=== PATIENT | male | born 1970 | race Caucasian/White ===

== ENCOUNTER 2017-07-03 01:49 | Observation (INO) | payer BC ==
[~2017-07-03] VITALS: Ht 170.2 cm; Wt 81.2 kg
[2017-07-03] VITALS (10 sets, daily range): BP systolic 132–154; BP diastolic 83–97; PULSE 61–90; RESP 17–19; Ht 170.2 cm; Wt 81.2 kg
[2017-07-03] MEDS ORDERED: HYDROCODONE/APAP (5/325) TAB PO PRN (06:30)
[2017-07-03] MEDS ORDERED: ACETAMINOPHEN 325 MG TAB PO PRN (06:30)
[2017-07-03] MEDS ORDERED: NITROGLYCERIN (SL) 0.4 MG TAB SL PRN (06:30)
[2017-07-03] MEDS ORDERED: ONDANSETRON 4 MG TAB PO PRN (06:30)
[2017-07-03] MEDS ORDERED: NACL 0.9% 3 ML SYG IV SCH (06:30)
[2017-07-03 07:26] LABS: BASOPHIL # 0.1 10^3/ul (0.0-0.1); BASOPHILS % 0.6 % (0.0-2.0); EOSINOPHILS # 0.2 10^3/ul (0.0-0.5); EOSINOPHILS % 1.9 % (0.0-7.0); HEMOGLOBIN 12.9 g/dl (14.0-18.0); LYMPHOCYTES # 2.2 10^3/ul (0.8-2.9); LYMPHOCYTES % 28.2 % (15.0-51.0); MEAN CORPUSCULAR HEMOGLOBIN 29.3 pg (29.0-33.0); MEAN CORPUSCULAR HGB CONC 33.9 g/dl (32.0-37.0); MEAN CORPUSCULAR VOLUME 86.4 fl (82.0-101.0); MEAN PLATELET VOLUME 9.4 fl (7.4-10.4); MONOCYTE # 0.5 10^3/ul (0.3-0.9); MONOCYTES % 6.9 % (0.0-11.0); NEUTROPHIL # 4.9 10^3/ul (1.6-7.5); NEUTROPHILS % 62.1 % (39.0-77.0); PLATELET COUNT 270 10^3/UL (140-415); RED CELL DISTRIBUTION WIDTH 12.7 % (11.5-14.5); WHITE BLOOD COUNT 7.9 10^3/ul (4.8-10.8)
[2017-07-03 07:45] LABS: ANION GAP 15 (8-16); BLOOD UREA NITROGEN 9 mg/dl (7-20); CALCIUM 9.1 mg/dl (8.4-10.2); CARBON DIOXIDE 27 mmol/L (21-31); CHLORIDE 107 mmol/L (97-110); CREATININE 0.77 mg/dl (0.61-1.24); GLUCOSE 95 mg/dl (70-220); POTASSIUM 3.5 mmol/L (3.5-5.1); SODIUM 145 mmol/L (135-144)
[2017-07-03 07:59] LABS: TROPONIN-I < 0.012 ng/ml (0.00-0.12)
--- NOTE | 2017-07-03 08:36 | HP ---
Date/Time of Note Date/Time of Note DATE: 07/03/17 TIME: 08:32 Assessment/Plan VTE Prophylaxis VTE Prophylaxis Intervention: LMWH Lines/Catheters IV Catheter Type (from [facility]): Peripheral IV Assessment/Plan Assessment/Plan [facility] 47yo man with acute onset last night of severe chest pain, dizziness, limb numbness, nausea, emesis, and diaphoresis. No gallbladder to blame. Ddx includes pulmonary embolism, GERD, or esophageal spasm. Symptoms are not consistent with aortic pathology. * Transferred to [facility] * Placed under telemetry observation * Lipid screen, ESR, D-dimer, TSH, urine studies, and HgbA1c * Serial troponins * Cardiology consultation with Dr. Tru Curtis, who requested Robyn Scan stress testing this morning * NPO except for medications * Lovenox for DVT prevention * Famotidine for GI protection * Full-code * Aspirin daily * Disposition home. Isabela Novoa MD PhD [phone] * HPI/ROS Admit Date/Time Admit Date/Time Jul 03, 2017 at 02:28 Hx of Present Illness Mr. Sheikh is a 47-year-old man who presented in the [facility] ER last night after he developed acute-onset of diaphoresis, moderate chest pressure, dizziness, and numbness in all his extremities. He drove himself to the nearby facility, where he said he almost got in an accident due to the way he was feeling. EKG and troponin there were normal. He said he became nauseated there, and had two episodes of non-bloody emesis. He feels much better this morning, almost back to normal. He had similar episodes of chest pressure in 2012. He underwent nuclear medicine testing and Echo then that he described as normal. He smokes one pack per day or more cigarettes. Very stressful life, with limited custody of his 13 -year-old daughter and recently concluded divorce. No diabetes or cardiac disease in the family. ROS No headache, dysphagia, slurred speech, weakness, falling, loose stooling or constipation, dysuria or urethritis symptoms. He mentioned several times having "lots of bubbles" when he urinates. PMH/Family/Social Past Medical History Medical History: other (Possible previous stroke, with right facial droop. ) Past Surgical History Past Surgical Hx: cholecystectomy Family History Significant Family History: no pertinent family hx Social History He works in [employer] for [employer] the past five years, and previously at [employer]. He live alone. Estranged from his parents and four sisters. Sees his 13yo daughter on the weekends. Smoking Status: Current every day smoker Exam/Review of Systems Vital Signs Vitals Vital Signs Date Time Temp Pulse Resp B/P Pulse Ox O2 Delivery O2 Flow Rate FiO2 07/03/17 08:09 88 07/03/17 07:28 98.0 19 132/85 96 07/03/17 03:25 Room Air Exam Constitutional: alert, oriented, well developed Psych: anxiety, nl mood/affect, no complaints Head: atraumatic, normocephalic, No hematomas, No lacerations Eyes: EOMI, PERRL, nl conjunctiva ENMT: mucosa pink and moist Neck: non-tender, supple, No bruits, No jvd, No masses, No nuchal rigidity, No thyromegaly Respiratory: clear to auscultation, normal air movement, No congested cough, No crackles/rales, No diminished breath sounds, No intercostal retraction, No labored breathing, No respirations, No wheezing Cardiovascular: nl pulses, regular rate and rhythm, No bruits, No diastolic murmur, No edema, No gallop, No irregular rhythm, No jugular venous distention (JVD), No murmurs/extra sounds, No rub, No systolic murmur Gastrointestinal: nl liver, spleen, non-tender, soft, No ascites, No bowel sounds, No distended, No firm, No hepatomegaly, No mass , No rebound or guarding, No splenomegaly, No tender Genitourinary - Male: No CVA tenderness Musculoskeletal: nl extremities to inspection, No joint tenderness, No muscle tone, No muscle weakness, No range of motion, No spine non-tender, No swelling Neurological: COFFEE BREWER II-XII intact, nl mental status, nl speech, nl strength, other (toes downgoing) Skin: nl turgor, No diaphoresis, No ecchymosis, No laceration, No puncture, No rash or lesions Lymph: nl lymph nodes Labs Result Diagram: 07/03/17 0702 07/03/17 0702 Medications Medications Current Medications Dextrose/Sodium Chloride (D5-1/2ns) 1,000 ml @ 100 mls/hr Q10H IV ; Start at 06:11; Status UNV Ondansetron HCl (Zofran Tab) 4 mg Q6H PRN PO NAUSEA AND/OR VOMITING; Start at 06:30; Status UNV Nitroglycerin (Nitroglycerin (Sl Tab) 0.4 Mg) 1 tab Q5M PRN SL CHEST PAIN; Start 07/03/17 at 06:30; Status UNV Acetaminophen (Tylenol Tab) 650 mg Q6H PRN PO PAIN LEVEL 1-3 OR FEVER; Start 07/03/17 at 06:30; Status UNV Acetaminophen/ Hydrocodone Bitart ([place] (5/325)) 1 tab Q6H PRN PO PAIN LEVEL 4 -6; Start 07/03/17 at 06:30; Status UNV Famotidine (Pepcid) 20 mg Q12 PO ; Start 07/03/17 at 09:00; Status UNV Enoxaparin Sodium (Lovenox) 40 mg DAILY SC ; Start 07/03/17 at 09:00; Status UNV SABINA NOVOA M.D. Jul 03, 2017 08:36
[2017-07-03] MEDS ORDERED: ENOXAPARIN 40 MG/0.4 ML SYG SC SCH (09:00)
[2017-07-03] MEDS: DEXTROSE 5%-0.45% NACL 1,000 ML IV SCH ×2 (09:18→16:11)
[2017-07-03] MEDS: FAMOTIDINE 20 MG TAB PO SCH ×2 (09:18→21:25)
[2017-07-03] MEDS ORDERED: D5W-0.45 NACL + KCL 20 MEQ 1,000 ML IV SCH (09:30)
[2017-07-03] MEDS ORDERED: POTASSIUM CHLORIDE (SR) 20 MEQ TAB PO STA (10:03)
[2017-07-03] MEDS ORDERED: REGADENOSON 0.4 MG/5 ML SYG ONE (11:11)
--- NOTE | 2017-07-03 11:41 | CONS ---
Date/Time of Note Date/Time of Note DATE: 07/03/17 TIME: 11:34 Assessment/Plan Assessment/Plan Chief Complaint/Hosp Course chest pain: R/O ACS HTN R/O Dyslipidemia smoker hx GERD ASA R/O HI LEXISCAN TODAY TO R/O CAD ECHO CONT BP CONTROL STOP SMOKING THANK YOU' BRAD LEYVA MD FAC Problems: Consultation Date/Type/Reason Admit Date/Time Jul 03, 2017 at 02:28 Date of Consultation: Jul 03, 2017 Type of Consultation: cardiology Reason for Consultation chest pain Referring Provider: SABINA MURO M.D. Hx of Present Illness CC: Chest pain HPI: Thank you for this referral. This is a 47 year old man who was transferred to our facility for evaluation of his chest pain pt states that he has had intermittent chest pain but yesterday it got worse. he had negative trop at [place] and here at . he is currently chest pain free now. pain is anteriorly, not related to exertion. worse when he smoker. Allergy NKDA Meds norvasc \PHM HTN GERD socia: + smoking Family hx no early CAD ROS: he denies all others to me except above Psychological: anxiety, nl mood/affect, no complaints Past Medical History Medical History: other (Possible previous stroke, with right facial droop. ) Past Surgical History Past Surgical Hx: cholecystectomy Social History Smoking Status: Current every day smoker Exam/Review of Systems Vital Signs Vitals Vital Signs Date Time Temp Pulse Resp B/P Pulse Ox O2 Delivery O2 Flow Rate FiO2 07/03/17 08:09 88 07/03/17 07:28 98.0 19 132/85 96 07/03/17 03:25 Room Air Exam General: no acute distress HEENT: NC/AT. pupils are equal. round. NECK: NO JVD. no stridor. CV: RRR. systolic murmur; no gallop or rubs. PULM: no wheezing or rhonchi. GI: SOFT, NT, ND, no rebound or guarding Extremity: trace B/L LE edema. no clubbing. neuro: awake and alert, OX3. Psych: calm and pleasant rectal: deferred : normal Results Result Diagram: 07/03/17 0702 07/03/17 0702 Results 24 hrs Laboratory Tests Test 07/03/17 07:02 White Blood Count 7.9 Red Blood Count 4.40 L Hemoglobin 12.9 L Hematocrit 38.0 L Mean Corpuscular Volume 86.4 Mean Corpuscular Hemoglobin 29.3 Mean Corpuscular Hemoglobin Concent 33.9 Red Cell Distribution Width 12.7 Platelet Count 270 Mean Platelet Volume 9.4 Neutrophils % 62.1 Lymphocytes % 28.2 Monocytes % 6.9 Eosinophils % 1.9 Basophils % 0.6 Nucleated Red Blood Cells % 0.0 Neutrophils # 4.9 Lymphocytes # 2.2 Monocytes # 0.5 Eosinophils # 0.2 Basophils # 0.1 Nucleated Red Blood Cells # 0.0 Sodium Level 145 H Potassium Level 3.5 Chloride Level 107 Carbon Dioxide Level 27 Anion Gap 15 Blood Urea Nitrogen 9 Creatinine 0.77 Glucose Level 95 Calcium Level 9.1 Troponin I < 0.012 Medications Medications Current Medications Dextrose/Sodium Chloride (D5-1/2ns) 1,000 ml @ 100 mls/hr Q10H IV Last administered on 07/03/17 09:18; Admin Dose 100 MLS/HR; Start 07/03/17 at 06: 11 Ondansetron HCl (Zofran Tab) 4 mg Q6H PRN PO NAUSEA AND/OR VOMITING; Start at 06:30 Nitroglycerin (Nitroglycerin (Sl Tab) 0.4 Mg) 1 tab Q5M PRN SL CHEST PAIN; Start 07/03/17 at 06:30 Acetaminophen (Tylenol Tab) 650 mg Q6H PRN PO PAIN LEVEL 1-3 OR FEVER; Start 07/03/17 at 06:30 Acetaminophen/ Hydrocodone Bitart ([place] (5/325)) 1 tab Q6H PRN PO PAIN LEVEL 4 -6; Start 07/03/17 at 06:30 Famotidine (Pepcid) 20 mg Q12 PO Last administered on 07/03/17 09:18; Admin Dose 20 MG; Start 07/03/17 at 09:00 Enoxaparin Sodium (Lovenox) 40 mg DAILY SC Last administered on 07/03/17 09: 32; Admin Dose 40 MG; Start 07/03/17 at 09:00 BRAD LEYVA MD Jul 03, 2017 11:41
--- NOTE | 2017-07-03 15:13 | RADRPT ---
PROCEDURE: Lexiscan myocardial perfusion study CLINICAL INDICATION: 47 -year-old patient complaining of chest pain. TECHNIQUE: Lexiscan 0.4 mg intravenously separate acquisition gated myocardial perfusion SPECT usi ng Tc 99m Myoview 33.6 mCi intravenously at stress and Tc-99m Myoview, 12.1 mCi intravenously at res t was performed using the rest/stress sequence. Poststress Myoview SPECT images were obtained in th e supine position. COMPARISON: No prior studies. FINDINGS: Perfusion images reveal no evidence of perfusion defects. Lexiscan post stress gated SPECT images demonstrate no wall motion abnormalities. IMPRESSION: 1. No evidence of perfusion defects. 2. No wall motion abnormalities. 3. The left ventricle ejection fraction at stress is 62%. A call report was made to Dr. Curtis at 03:12 p.m. on July 03, 2017. RPTAT: QQ .Ivone Baker MD, Date Time Electronically viewed and signed by .Ivone Baker MD, on 07/03/2017 15:12 .L/
--- NOTE | 2017-07-03 15:18 | RADRPT ---
Echocardiogram Report Patient Name: YAW BENITEZ Gender: Male Date: 1970 Study Date: 03-Jul-2017 Costume Draper: CARLY Location: 5550 Ref. Physician: BRAD CURTIS Quality: Good Procedures: Transthoracic echocardiogram with complete 2D, M-Mode, and doppler examination. Indications: Chest Pain. 2D/M Mode Doppler Measurement Value Normal Ranges Measurement Value Normal Ranges AoR Diam MM 3.2 cm BHAVIK Vmax 2.7 cm2 ACS MM 2.4 cm BHAVIK VTI 2.7 cm2 LA/Ao MM 1.2 AV Mean Collin 0.8 m/sec LA Dimen MM 3.8 cm AV Mean PG 3.0 mmHg LVIDd 2D 4.8 3.5 - 5.6 cm AV Peak Collin 1.1 m/sec LVIDs 2D 3.3 2.1 - 4.1 cm AV Peak PG 4.5 mmHg LVPWd 2D 1.0 0.6 - 1.1 cm AV VTI 23.1 cm IVSd 2D 1.0 0.6 - 1.1 cm LVOT Peak Collin 0.9 m/sec EDV 2D 107.7 cm3 LVOT Peak PG 3.2 mmHg ESV 2D 34.4 cm3 MV E Peak [place]lin 1.1 m/sec EF 2D 60.0 50.0 - 65.0 % MV A Peak [place]lin 0.5 m/sec LVOT Diam 2.0 cm MV E/A 2.0 MV Decel Time 204 msec MV Decel [place] 5 MV E/A 2.0 TR Peak Collin 2.4 m/sec TR Peak PG 22.1 mmHg RVSP 32.0 mmHg RA Pressure 10.0 Findings Left Ventricle: Normal left ventricular systolic function. Normal left ventricular cavity size. Normal left ventricular wall thickness. Ejection fraction is visually estimated at 60 %. Tissue Doppler/Mitral Doppler indices are within normal limits. Right Ventricle: Normal right ventricular size. Normal right ventricular systolic function. Left Atrium: The left atrium is normal in size. Right Atrium: The right atrium is normal in size. Mitral Valve: Normal appearance and function of the mitral valve with trace physiologic regurgitation. Aortic Valve: Normal appearance of the aortic valve. No significant aortic stenosis with trivial insufficiency. Tricuspid Valve: Normal appearance of the tricuspid valve. Normal right ventricular systolic pressure. Estimated peak PA systolic pressure 32 mmHg. There is trace to mild tricuspid regurgitation. Pulmonic Valve: Pulmonic valve not well visualized however velocity is normal. Pericardium: Normal pericardium with no significant pericardial effusion. Aorta: Normal aortic root. IVC: Normal size and normal respiratory collapse consistent with normal right atrial pressure. Conclusions 1.Normal left ventricular systolic function. Normal left ventricular cavity size. Normal left ventricular wall thickness. Ejection fraction is visually estimated at 60 %. Tissue Doppler/Mitral Doppler indices are within normal limits. 2.Normal appearance of the aortic valve. No significant aortic stenosis with trivial insufficiency. 3.Normal appearance and function of the mitral valve with trace physiologic regurgitation. 4.Normal appearance of the tricuspid valve. Normal right ventricular systolic pressure. Estimated peak PA systolic pressure 32 mmHg. There is trace to mild tricuspid regurgitation. Electronically Signed By: Brad Curtis 03-Jul-2017 15:17:52 -0800 Patient Name: YAW BENITEZ Study Date: 03-Jul-2017 [id number]
[2017-07-03 16:32] LABS: CHOL/HDL RATIO 4.8 RATIO
[2017-07-03 16:33] LABS: INR 0.96; PROTIME 12.8 Sec (12.2-14.2)
[2017-07-03 17:04] LABS: THYROID STIMULATING HORMONE 0.304 MIU/L (0.465-4.680)
[2017-07-03] MEDS ORDERED: PANT20TA2 PO (19:35)
--- NOTE | 2017-07-03 19:39 | PDOCDIS ---
Discharge Instructions DIAGNOSIS Discharge Diagnosis Non-cardiac chest pain, reflux disease, possible hyperthyroidism CONDITION Patient Condition: Good HOME CARE INSTRUCTIONS: Diet Instructions: Low Fat /Cholesterol ACTIVITY: Activity Restrictions: Slowly Increase Activity FOLLOW UP/APPOINTMENTS Follow-up Plan Cardiology follow-up in the next week. SABINA MURO M.D. Jul 03, 2017 19:39
--- NOTE | 2017-07-03 20:16 | DS ---
Date/Time of Note Date/Time of Note DATE: 07/03/17 TIME: 19:51 Discharge Summary Admission/Discharge Info Admit Date/Time Jul 03, 2017 at 02:28 Discharge Date/Time Jul 03, 2017 Discharge Diagnosis Non-cardiac chest pain, reflux disease, possible hyperthyroidism Patient Condition: Good Consults Brad Curtis MD (cardiology) Procedures Robyn Scan Hx of Present Illness Mr. Sheikh is a 47-year-old man who presented in the [facility] ER last night after he developed acute-onset of diaphoresis, moderate chest pressure, dizziness, and numbness in all his extremities. He drove himself to the nearby facility, where he said he almost got in an accident due to the way he was feeling. EKG and troponin there were normal. He said he became nauseated there, and had two episodes of non-bloody emesis. He had similar episodes of chest pressure in 2012. He underwent nuclear medicine testing and Echo then that he described as normal. He smokes one pack per day or more cigarettes. Very stressful life, with limited custody of his 13-year-old daughter and recently concluded divorce. No diabetes or cardiac disease in the family. Hospital Course EKG and two negative troponins at [place] suggested a non-cardiac etiology. He was monitored overnight and had no recurrence of his chest pain. A third troponin was undetectable. A Robyn Scan this afternoon showed no evidence consistent with ischemia. Patient understands the limits of these tests, and we have agreed to send him home on Protonix 20mg PO BID. We will try to arrange formal outpatient cardiology consultation this week, and I also spoke to him about the urgency of smoking cessation. Blood tests this morning showed a mildly elevated triglyceride level of 169, with normal-range total cholesterol of 164 (on no medical therapy). His TSH returned low at 0.304 mIU/L, suggesting possible hyperthyroidism. This could help explain his subjective experience of recent "panic attacks," and should be followed up with his primary care physician, Dr. Ismael Naranjo. He will call Wednesday morning to set up a post-discharge appointment with Dr. Naranjo. Besides the thyroid issue, I urged him to raise the issue of smoking cessation with use of medications like Chantix or Zyban to facilitate his desire to stop smoking. Home Meds Active Scripts Pantoprazole* (Protonix*) 20 Mg Tablet., 20 MG PO BID for 30 Days, TAB Prov:SABINA MURO M.D. 07/03/17 Follow-up Plan Cardiology follow-up in the next week. Primary Care Provider Ismael Naranjo MD [address], [address] [place] [address] Time spent on discharge: > 30 minutes Pending Labs Laboratory Tests Test 07/03/17 07:02 07/03/17 15:53 07/03/17 15:54 White Blood Count 7.910^3/ul (4.8-10.8) Red Blood Count 4.4010^6/ul (4.70-6.10) Hemoglobin 12.9g/dl (14.0-18.0) Hematocrit 38.0% (42.0-52.0) Mean Corpuscular Volume 86.4fl (82.0-101.0) Mean Corpuscular Hemoglobin 29.3pg (29.0-33.0) Mean Corpuscular Hemoglobin Concent 33.9g/dl (32.0-37.0) Red Cell Distribution Width 12.7% (11.5-14.5) Platelet Count 19737^3/UL (140-415) Mean Platelet Volume 9.4fl (7.4-10.4) Neutrophils % 62.1% (39.0-77.0) Lymphocytes % 28.2% (15.0-51.0) Monocytes % 6.9% (0.0-11.0) Eosinophils % 1.9% (0.0-7.0) Basophils % 0.6% (0.0-2.0) Nucleated Red Blood Cells % 0.0/100WBC (0.0-0.0) Neutrophils # 4.910^3/ul (1.6-7.5) Lymphocytes # 2.210^3/ul (0.8-2.9) Monocytes # 0.510^3/ul (0.3-0.9) Eosinophils # 0.210^3/ul (0.0-0.5) Basophils # 0.110^3/ul (0.0-0.1) Nucleated Red Blood Cells # 0.010^3/ul (0.0-0.0) Sodium Level 145mmol/L (135-144) Potassium Level 3.5mmol/L (3.5-5.1) Chloride Level 107mmol/L (97-110) Carbon Dioxide Level 27mmol/L (21-31) Anion Gap 15 (8-16) Blood Urea Nitrogen 9mg/dl (7-20) Creatinine 0.77mg/dl (0.61-1.24) Glucose Level 95mg/dl (70-220) Calcium Level 9.1mg/dl (8.4-10.2) Troponin I < 0.012ng/ml (0.00-0.12) Hemoglobin A1c 5.5% (0-5.9) Triglycerides Level 164mg/dl (0-149) Cholesterol Level 169mg/dl (100-200) LDL Cholesterol, Calculated 101mg/dl HDL Cholesterol 35mg/dl (27-67) Cholesterol/HDL Ratio 4.8RATIO Thyroid Stimulating Hormone (TSH) 0.304MIU/L (0.465-4.680) Erythrocyte Sedimentation Rate 6mm/Hr (0-15) Prothrombin Time 12.8Sec (12.2-14.2) Prothrombin Time Ratio 1.0 INR International Normalized Ratio 0.96 D-Dimer 220.00ng/ml (<460) D-Dimer Comment Copies To: CC: BRAD CURTIS MD, JOHN P. M.D. Jul 03, 2017 20:04
== END 2017-07-03 21:53 | disposition home or self-care (01) ==
LOC: INTOOBSV 02:28 → MS4 02:28
PROVIDERS: ADMIT Internal Medicine; ATTEND Internal Medicine
DX: R07.89 Other chest pain (principal); K21.9 Gastro-esophageal reflux disease without esophagitis; I10 Essential (primary) hypertension; F17.210 Nicotine dependence, cigarettes, uncomplicated; Z90.49 Acquired absence of other specified parts of digestive tract
CPT/HCPCS: 78452; 80048; 80061; 83036; 84443; 84484; 85025; 85378; 85610; 85651; 93017; 93306; A9500; A9505; G0378; J1650; J2785; J7042